=== PATIENT | male | born 1960 | race Caucasian/White ===

== ENCOUNTER 2022-09-28 12:19 | Outpatient (CLI) | payer BC ==
[2022-09-28] MEDS ORDERED: Lidocaine 1% PF 5 ML VIAL ONE ×2 (12:44→13:58)
[2022-09-28] MEDS ORDERED: Sodium Bicarbonate 2.5 MEQ/5 ML VIAL ONE (12:44)
== END 2022-09-28 14:55 | disposition home or self-care (01) ==
LOC: CSHRAD 12:19
PROVIDERS: ATTEND Neurological Surgery
DX: M54.16 Radiculopathy, lumbar region (principal); M47.816 Spondylosis without myelopathy or radiculopathy, lumbar region; M48.061 Spinal stenosis, lumbar region without neurogenic claudication
CPT/HCPCS: 62304; 72132